=== PATIENT | female | born 1995 | race Caucasian/White ===

== ENCOUNTER 2017-04-10 03:01 | Inpatient (IN) | payer OTHER ==
[~2017-04-10] VITALS: Ht 165.1 cm; Wt 71.5 kg
[~2017-04-10 03:01] MED LIST: CITA10TA4 PO; EPP3/2 IM; PRAZ1CAP10 PO; QUET1TAB37 PO
[2017-04-10 03:06] VITALS: O2SAT 99
--- NOTE | 2017-04-10 03:36 | EMERGENCY ROOM VISIT NOTE ---
History Report prepared by Tahir: Elena Bishop Under the Supervision of: Dr. Marta Mcghee M.D. First contact with patient: 03:22 Chief Complaint: MENTAL HEALTH EVALUATION Stated Complaint: need psych handley stay- schizophrenia History of Present Illness The patient is a 22 year old female who presents to the Emergency Room with complaints of a mental health evaluation. The patient states that she has schizophrenia and that she has been off of her medications for two weeks. The patient reports that her medication makes her tired so she stopped taking them so she could stay up later to do school work. She reports that she took an extra pill that she had 3 days ago. She reports that she has also been hallucinating clowns recently. The patient denies substance abuse and suicidal thoughts. Source of History: patient Onset: today Position: other (global) Quality: other (mental health evaluation ) Timing: constant Note: additional symptom: hallucinations denies: suicidal thoughts Review of Systems See HPI for pertinent positives & negatives. A total of 10 systems reviewed and were otherwise negative. Past Medical & Surgical Medical Problems: (1) Depression (2) Schizophrenia Social History Problems: (1) Sexually active Family History Patient reports no known family medical history. Social History Smoking Status: Never Smoker Drug Use: none Marital Status: single Housing Status: lives with roommate Occupation Status: [employer] student Current/Historical Medications Scheduled Citalopram Hydrobromide (Citalopram Hydrobromide), 10 MG PO QAM Quetiapine Fumarate (Seroquel Xr), 300 MG PO HS Scheduled PRN Epinephrine (Epipen), 0.3 MG IM UD PRN for ALLERGIC REACTION Lorazepam (Ativan), 0.5 MG PO Q6H PRN for Anxiety Quetiapine Fumarate (Seroquel), 25 MG PO BID PRN for stress Allergies Coded Allergies: Shellfish (Verified Allergy, Severe, flushed and sob, 04/10/17) HAS USED EPIPEN WITH REACTION Risperidone (Verified Allergy, Mild, Drops BP, 04/10/17) Physical Exam Vital Signs Date Time Temp Pulse Resp B/P (MAP) Pulse Ox O2 Delivery O2 Flow Rate FiO2 04/10/17 03:06 36.4 86 20 119/85 99 Room Air Physical Exam Vital signs reviewed. General: Well-appearing female, in no significant distress. HEENT: No scleral icterus, PERRLA, neck supple. Atraumatic. Cardiovascular: Regular rate and rhythm, no extra sounds. Pulmonary: Clear to auscultation bilaterally, normal work of breathing. Abdomen: Soft, nontender, nondistended, positive bowel sounds. Musculoskeletal: Atraumatic, no peripheral edema. Neurologic: Patient awake alert and oriented x 3, full strength in all 4 extremities. Cranial nerves 2 through 12 grossly intact. Skin: Warm, dry, no rash Psych: Negative suicidal, negative homicidal. Medical Decision & Procedures Laboratory Results 04/10/17 03:28 Red Blood Count 4.77, Mean Corpuscular Volume 86.2, Mean Corpuscular Hemoglobin 28.9, Mean Corpuscular Hemoglobin Concent 33.6, Mean Platelet Volume 9.0, Neutrophils (%) (Auto) 50.5, Lymphocytes (%) (Auto) 37.3, Monocytes (%) (Auto) 10.1, Eosinophils (%) (Auto) 1.9, Basophils (%) (Auto) 0.1, Neutrophils # (Auto ) 3.45, Lymphocytes # (Auto) 2.55, Monocytes # (Auto) 0.69, Eosinophils # (Auto ) 0.13, Basophils # (Auto) 0.01 04/10/17 03:28 Test 04/10/17 03:28 04/10/17 04:15 04/10/17 04:31 White Blood Count 6.84 K/uL (4.8-10.8) Red Blood Count 4.77 M/uL (4.2-5.4) Hemoglobin 13.8 g/dL (12.0-16.0) Hematocrit 41.1 % (37-47) Mean Corpuscular Volume 86.2 fL (80-100) Mean Corpuscular Hemoglobin 28.9 pg (25-34) Mean Corpuscular Hemoglobin Concent 33.6 g/dl (32-36) Platelet Count 248 K/uL (130-400) Mean Platelet Volume 9.0 fL (7.4-10.4) Neutrophils (%) (Auto) 50.5 % Lymphocytes (%) (Auto) 37.3 % Monocytes (%) (Auto) 10.1 % Eosinophils (%) (Auto) 1.9 % Basophils (%) (Auto) 0.1 % Neutrophils # (Auto) 3.45 K/uL (1.4-6.5) Lymphocytes # (Auto) 2.55 K/uL (1.2-3.4) Monocytes # (Auto) 0.69 K/uL (0.11-0.59) Eosinophils # (Auto) 0.13 K/uL (0-0.5) Basophils # (Auto) 0.01 K/uL (0-0.2) RDW Standard Deviation 39.7 fL (36.4-46.3) RDW Coefficient of Variation 12.6 % (11.5-14.5) Immature Granulocyte % (Auto) 0.1 % Immature Granulocyte # (Auto) 0.01 K/uL (0.00-0.02) Anion Gap 8.0 mmol/L (3-11) Est Creatinine Clear Calc Drug Dose 104.6 ml/min Estimated GFR () 115.2 Estimated GFR (Non- 99.4 BUN/Creatinine Ratio 6.3 (10-20) Calcium Level 8.7 mg/dl (8.5-10.1) Total Bilirubin 0.4 mg/dl (0.2-1) Direct Bilirubin < 0.1 mg/dl (0-0.2) Aspartate Amino Transf (AST/SGOT) 12 U/L (15-37) Alanine Aminotransferase (ALT/SGPT) 18 U/L (12-78) Alkaline Phosphatase 83 U/L (45-117) Total Protein 7.3 gm/dl (6.4-8.2) Albumin 3.9 gm/dl (3.4-5.0) Thyroid Stimulating Hormone (TSH) 1.850 uIu/ml (0.300-4.500) Salicylates Level < 1.7 mg/dl (2.8-20) Acetaminophen Level < 2 ug/ml (10-30) Ethyl Alcohol mg/dL < 3.0 mg/dl (0-3) Urine Color DK YELLOW Urine Appearance CLEAR (CLEAR) Urine pH 5.0 (4.5-7.5) Urine Specific [place] 1.022 (1.000-1.030) Urine Protein NEG (NEG) Urine Glucose (UA) NEG (NEG) Urine Ketones TRACE (NEG) Urine Occult Blood NEG (NEG) Urine Nitrite NEG (NEG) Urine Bilirubin NEG (NEG) Urine Urobilinogen NEG (NEG) Urine Leukocyte Esterase MODERATE (NEG) Urine WBC (Auto) >30 /hpf (0-5) Urine RBC (Auto) 0-4 /hpf (0-4) Urine Hyaline Casts (Auto) 1-5 /lpf (0-5) Urine Epithelial Cells (Auto) >30 /lpf (0-5) Urine Bacteria (Auto) 1+ (NEG) Urine Opiates Screen NEG (NEG) Urine Methadone, Qualitative NEG (NEG) Urine Barbiturates NEG (NEG) Urine Phencyclidine (PCP) Level NEG (NEG) Ur Amphetamine/Methamphetamine NEG (NEG) MDMA (Ecstasy) Screen NEG (NEG) Urine Benzodiazepines Screen NEG (NEG) Urine Cocaine Metabolite NEG (NEG) Urine Marijuana (THC) NEG (NEG) Urine Test NEG (NEG) Laboratory results per my review. ED Course 0329: Past medical records reviewed. The patient was evaluated in room A7. A complete history and physical examination was performed. 0600: Upon reevaluation, the patient is resting comfortably. She verbalized agreement of the treatment plan. I spoke with Adrian Kruger. The patient will be evaluated for further management and care. Medical Decision Differential diagnosis: Etiologies such as mood disorder, infection, hypoglycemia, electrolyte abnormalities, cardiac sources, intracerebral event, toxicologic, neurologic, as well as others were entertained. This patient was evaluated and appeared to be in no significant distress. Patient was medically cleared and evaluated by David Ely. She was accepted for inpatient management. Patient is aware of the plan and agrees. Medication Reconcilliation Current Medication List: was personally reviewed by me Blood Pressure Screening Patient's blood pressure: Normal blood pressure Consults Time Called: 0530 Consulting Physician: Adrian Kruger Returned Call: 0600 I reviewed the patient's case with Adrian Kruger. The patient will be evaluated for further management. Impression Primary Impression: Schizophrenia Scribe Attestation The scribe's documentation has been prepared under my direction and personally reviewed by me in its entirety. I confirm that the note above accurately reflects all work, treatment, procedures, and medical decision making performed by me. Departure Information Dispostion Being Evaluated By Hospitalist [facility] (PCP) Patient Instructions My [facility]
[2017-04-10 03:37] LABS: BASO % 0.1 %; BASO ABS # 0.01 K/uL (0-0.2); COMPLETE YES; EOS % 1.9 %; HEMATOCRIT 41.1 % (37-47); IG% 0.1 %; LYMPH % 37.3 %; LYMPH ABS # 2.55 K/uL (1.2-3.4); MEAN CELL VOLUME 86.2 fL (80-100); MEAN CORPUSCULAR HEMOGLOBIN 28.9 pg (25-34); MEAN CORPUSCULAR HGB CONC 33.6 g/dl (32-36); MONO % 10.1 %; NEUT % 50.5 %; PLATELET COUNT 248 K/uL (130-400); RED BLOOD COUNT 4.77 M/uL (4.2-5.4); WHITE BLOOD COUNT 6.84 K/uL (4.8-10.8)
[2017-04-10 03:55] LABS: ALT/SGPT 18 U/L (12-78); AST/SGOT 12 U/L (15-37); BLOOD UREA NITROGEN 5 mg/dl (7-18); BUN/CREATININE RATIO 6.3 (10-20); CALCIUM 8.7 mg/dl (8.5-10.1); CARBON DIOXIDE 27 mmol/L (21-32); CHLORIDE 105 mmol/L (98-107); CREATININE 0.83 mg/dl (0.60-1.20); GLUCOSE 122 mg/dl (70-99); POTASSIUM 3.7 mmol/L (3.5-5.1); SODIUM 140 mmol/L (136-145)
[2017-04-10] MEDS ORDERED: QUET1TAB30 PO (04:05)
[2017-04-10] MEDS ORDERED: QUET300T2 PO (04:05)
[2017-04-10 04:06] LABS: ALKALINE PHOSPHATASE 83 U/L (45-117)
[2017-04-10] MEDS ORDERED: LORA-741 PO (04:06)
[2017-04-10 04:10] LABS: ACETAMINOPHEN < 2 ug/ml (10-30)
[2017-04-10 04:32] LABS: URINE APPEARANCE CLEAR (CLEAR); URINE BILIRUBIN NEG (NEG); URINE COLOR DK YELLOW; URINE EPITHELIAL CELL AUTO >30 /lpf (0-5); URINE NITRITE NEG (NEG); URINE SPECIFIC GRAVITY 1.022 (1.000-1.030); UROBILINOGEN NEG (NEG); ZZUR CULT IF INDIC CLEAN CATCH YES
[2017-04-10 04:34] LABS: MANUAL MICROSCOPIC REQUIRED? NO; REVIEW REQ? NO
[2017-04-10 04:53] LABS: BENZODIAZEPINE, URINE NEG (NEG); COCAINE,URINE NEG (NEG); PHENCYCLIDINE, URINE NEG (NEG)
[2017-04-10] MEDS ORDERED: NURSING VERBAL MED ORDER ONE (06:30)
[2017-04-10] MEDS ORDERED: ACETAMINOPHEN 325 MG TAB PO PRN (07:45)
[2017-04-10] MEDS ORDERED: hydrOXYzine HCL 25 MG TAB PO PRN ×2 (07:45)
[2017-04-10] MEDS ORDERED: SODIUM CHLORIDE 0.65% NA SOLN 45 ML (OCEAN) PRN (07:45)
[2017-04-10] MEDS ORDERED: ALUMINUM/MAGNESIUM SUSP 30 ML UDC PO PRN (07:45)
[2017-04-10] MEDS ORDERED: MAGNESIUM HYDROXIDE SUSP 30 ML UDC PO PRN (07:45)
[2017-04-10] MEDS ORDERED: BISMUTH SUBSALICYLATE PER ML OMNICELL CHARGE PO PRN (07:45)
[2017-04-10 07:48] VITALS: BP 108/69; PULSE 87; TEMP 36.9; Ht 165.1 cm; Wt 71.5 kg
[2017-04-10] MEDS ORDERED: LORAZEPAM 0.5 MG TAB PO PRN ×2 (08:00→11:15)
[2017-04-10] MEDS: CITALOPRAM 20 MG TAB PO SCH (09:01)
[2017-04-10] MEDS ORDERED: CITALOPRAM 20 MG TAB PO ONE (11:08)
[2017-04-10] MEDS ORDERED: EPINEPHRINE ADULT AUTO-INJECT 0.3 MG SYR IM PRN (11:15)
[2017-04-10] MEDS ORDERED: QUETIAPINE FUMARATE 25 MG TAB PO PRN (11:15)
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
[2017-04-10] MEDS: QUETIAPINE FUMARATE PO SCH ×2 (21:34)
[2017-04-10] MEDS ORDERED: QUETIAPINE FUMARATE 300 MG TABCR PO SCH (22:00)
[2017-04-11 07:01] VITALS: BP_SYST 106; BP_SYST 118; BP_DIAS 68; PULSE 65; PULSE 99; TEMP 36.4
[2017-04-11] MEDS ORDERED: CITALOPRAM 20 MG TAB PO SCH (09:00)
[2017-04-11 09:23] LABS: CHOLESTEROL/HDL RATIO 3.9
[2017-04-11] MEDS: CITALOPRAM 20 MG TAB PO SCH (10:17)
--- NOTE | 2017-04-11 12:04 | Psychiatric Progress Notes ---
Progress Note Date of Service Apr 11, 2017. Interval History Gracie Patton is a 22-year-old female who currently lives in [place] with 3 roommates, has a history of schizophrenia, and presented to the emergency room with worsening hallucinations in the context of going off her medications 2 weeks ago due to sedation that interfered with studying. She was admitted voluntarily. Chief Complaint "I'm just tired. ". Subjective Patient was seen & assessed interval progress reviewed with Treatment Team. The patient slept most of yesterday and is still in bed at noon. She awakens to verbal, and says that she feels tired, having just restarted her meds. She reports that her mood is "good" as is her thinking. She denies aud/vis hallucinations, delusions or paranoia. She did not get up for breakfast today, but did eat 2 meals yesterday. She denies any physical complaints or side effects to meds other than sedation. Review of Systems Constitutional: + fatigue ENT: No hearing loss, No unusual epistaxis, No nasal symptoms, No sore throat, No tinnitus, No dental problems, No trouble swallowing, No problem reported Respiratory: No cough, No sputum, No wheezing, No shortness of breath, No dyspnea on exertion, No dyspnea at rest, No hemoptysis, No problem reported Cardiovascular: No chest pain, No orthopnea, No PND, No edema, No claudication , No palpitations, No problem reported Abdomen: No pain, No nausea, No vomiting, No diarrhea, No constipation, No GI bleeding, No problem reported Musculoskeletal: No joint pain, No muscle pain, No swelling, No calf pain, No problem reported Neurologic: No memory loss, No paralysis, No weakness, No numbness/tingling, No vertigo, No balance problems, No problem reported Psychiatric: No depression symptoms, No anhedonism, No anxiety, No insomnia, No substance abuse, No problem reported Integumentary: No rash, No itch, No new/changing skin lesions, No color change , No bleeding, No problem reported Sleep Information Total Hours of Sleep: 6.50 Meal Information Percent of Breakfast Consumed: 100 Percent of Dinner Consumed: 95 Mental Status Exam During interview pt is: cooperative Appearance: appropriately dressed, disheveled, appeared stated age Eye contact is: poor (tired with eyes closed) Motor behavior is: no abnormal motor movements Speech: normal in rate, rhythm & volume Affect: euthymic Mood is: other ("good") Thought process: goal directed, linear, logical, clear, coherent Thought content: reality based without delusions Suicidal thought are: denied Homicidal thoughts are: denied Hallucinations: denies auditory, denies visual Cognition: memory grossly intact, attention grossly intact, language grossly intact Intelligence estimated to be: consistent with level of education Insight: fair Judgement: fair Impression Has slept for most of the last 24 hrs. Encouraged to challenge herself to get out of bed to prevent insomnia tonight. Will continue current meds Plan (1) Schizophrenia 04/10 -Resume home doses of quetiapine XR 300mg qhs and quetiapine 25mg bid prn. -Pt states she has not had fasting labs, Check FLP and glucose tomorrow AM for monitoring on an atypical. -Get records from Dr. White and confirm doses of medications. Coordinate care , -Offer family meeting, which she is declining. -Encourage attendance and participation in groups and therapy. 04/11 - Continue current meds - Encourage good sleep/wake cycles (2) Depression Resume home dose of citalopram. (3) Anxiety disorder Resume home dose of citalopram, lorazepam prn, and quetiapine prn. (4) Sexually active Sexually active and not on contraception. Using condoms and "pull out method." Encouraged to follow up with OB at [facility] as she is exploring IUDs, and to use barrier protection in the meantime. Discharge / Aftercare Planning Psychiatrist: Name: Dr White Date of Appointment: Apr 19, 2017 Time of Appointment: 4:30pm Therapist: Name: none Core Setter: Name: none Visit Code E&M Code: 62969 Inventory Assets Strengths: intelligence, well educated about diagnosis, committed to treatment, good rapport with psychiatrist Risk Factors Assessment : Yes /single/: Yes Higher / Fall in social status: No Health problems: No Mental Health Diagnoses: Yes Substance use disorders: No Previous attempt: Yes Previous psychiatric stay: Yes Hopelessness: No Smoker: No Protective Factors Assessment : No Responsible for young children: No Employed: Yes Stable relationships: Yes Supportive family: No Good rapport with provider: Yes Data Vital Signs Last 24 Hrs: Date Time Temp Pulse Resp B/P (MAP) Pulse Ox O2 Delivery O2 Flow Rate FiO2 04/11/17 07:01 36.4 65 16 106/68 99 118/68 Meds Administered Last 24 Hrs: Meds Administered (Past 24Hrs) Medications (Trade) Dose Ordered Sig/Prashanth Route Start Time Stop Time Status Last Admin Dose Admin Citalopram Hydrobromide (celeXA TAB) 10 mg QAM PO 04/10/17 09:00 05/10/17 08:59 04/11/17 10:17 10 MG Quetiapine Fumarate (seroQUEL XR TAB) 300 mg HS PO 04/10/17 22:00 05/10/17 21:59 04/10/17 21:34 300 MG Lab Results Last 24 Hrs: Last 24 Hours Test 04/11/17 08:08 Fasting Glucose 78 mg/dl Triglycerides Level 135 mg/dl Cholesterol Level 177 mg/dl HDL Cholesterol 45 mg/dl LDL Cholesterol, Calculated 105 mg/dl VLDL Cholesterol, Calculated 27 mg/dl Cholesterol/HDL Ratio 3.9
[2017-04-11] MEDS: QUETIAPINE FUMARATE PO SCH ×2 (21:21)
[2017-04-12 07:02] VITALS: BP_SYST 100; BP_SYST 98; BP_DIAS 66; PULSE 66; PULSE 89; TEMP 36.3
[2017-04-12] MEDS: CITALOPRAM 20 MG TAB PO SCH (09:14)
--- NOTE | 2017-04-12 11:34 | Psychiatric Progress Notes ---
Progress Note Date of Service Apr 12, 2017. Interval History Gracie Patton is a 22-year-old female who currently lives in [place] with 3 roommates, has a history of schizophrenia, and presented to the emergency room with worsening hallucinations in the context of going off her medications 2 weeks ago due to sedation that interfered with studying. She was admitted voluntarily. Chief Complaint "I'm tired from starting back on my meds. ". Subjective Patient was seen & assessed interval progress reviewed with Treatment Team. The patient is again in bed when approached for the interview. She says that getting back on her meds is making her tired. Staff report that she was in bed most of the day yesterday, but was able to get up and attend groups last evening. Today she repeats what she said yesterday, that her mood is good, she denies aud/vis hallucinations or paranoia, and never had any SI/HI. She believes that she just came here to get her meds restarted and will likely be ready to go by tomorrow. Review of Systems Constitutional: + fatigue ENT: No hearing loss, No unusual epistaxis, No nasal symptoms, No sore throat, No tinnitus, No dental problems, No trouble swallowing, No problem reported Respiratory: No cough, No sputum, No wheezing, No shortness of breath, No dyspnea on exertion, No dyspnea at rest, No hemoptysis, No problem reported Cardiovascular: No chest pain, No orthopnea, No PND, No edema, No claudication , No palpitations, No problem reported Abdomen: No pain, No nausea, No vomiting, No diarrhea, No constipation, No GI bleeding, No problem reported Musculoskeletal: No joint pain, No muscle pain, No swelling, No calf pain, No problem reported Neurologic: No memory loss, No paralysis, No weakness, No numbness/tingling, No vertigo, No balance problems, No problem reported Psychiatric: No depression symptoms, No anhedonism, No anxiety, No insomnia, No substance abuse, No problem reported Integumentary: No rash, No itch, No new/changing skin lesions, No color change , No bleeding, No problem reported Sleep Information Total Hours of Sleep: 7.75 Meal Information Percent of Breakfast Consumed: 100 Percent of Lunch Consumed: 100 Percent of Dinner Consumed: 75 Mental Status Exam During interview pt is: cooperative Appearance: appropriately dressed, disheveled, appeared stated age Eye contact is: poor (tired with eyes closed) Motor behavior is: no abnormal motor movements Speech: normal in rate, rhythm & volume Affect: euthymic Mood is: other ("good") Thought process: goal directed, linear, logical, clear, coherent Thought content: reality based without delusions Suicidal thought are: denied Homicidal thoughts are: denied Hallucinations: denies auditory, denies visual Cognition: memory grossly intact, attention grossly intact, language grossly intact Intelligence estimated to be: consistent with level of education Insight: fair Judgement: fair Impression Is again too sedated to get up for groups. Will move Seroquel XR to 1999. She is denying being symptomatic in any way and will be able to discharge tomorrow Plan (1) Schizophrenia 04/10 -Resume home doses of quetiapine XR 300mg qhs and quetiapine 25mg bid prn. -Pt states she has not had fasting labs, Check FLP and glucose tomorrow AM for monitoring on an atypical. -Get records from Dr. White and confirm doses of medications. Coordinate care , -Offer family meeting, which she is declining. -Encourage attendance and participation in groups and therapy. 04/11 - Continue current meds - Encourage good sleep/wake cycles 04/12 - Move Seroquel XR to 1999 (2) Depression Resume home dose of citalopram. (3) Anxiety disorder Resume home dose of citalopram, lorazepam prn, and quetiapine prn. (4) Sexually active Sexually active and not on contraception. Using condoms and "pull out method." Encouraged to follow up with OB at [facility] as she is exploring IUDs, and to use barrier protection in the meantime. Discharge / Aftercare Planning Psychiatrist: Name: Dr White Date of Appointment: Apr 19, 2017 Time of Appointment: 4:30pm Therapist: Name: none Quotation Clerk: Name: none Visit Code E&M Code: 74935 Inventory Assets Strengths: intelligence, well educated about diagnosis, committed to treatment, good rapport with psychiatrist Risk Factors Assessment : Yes /single/: Yes Higher / Fall in social status: No Health problems: No Mental Health Diagnoses: Yes Substance use disorders: No Previous attempt: Yes Previous psychiatric stay: Yes Hopelessness: No Smoker: No Protective Factors Assessment : No Responsible for young children: No Employed: Yes Stable relationships: Yes Supportive family: No Good rapport with provider: Yes Data Vital Signs Last 24 Hrs: Date Time Temp Pulse Resp B/P (MAP) Pulse Ox O2 Delivery O2 Flow Rate FiO2 04/12/17 07:02 36.3 66 16 100/66 89 98/66 Meds Administered Last 24 Hrs: Meds Administered (Past 24Hrs) Medications (Trade) Dose Ordered Sig/Prashanth Route Start Time Stop Time Status Last Admin Dose Admin Quetiapine Fumarate (seroQUEL XR TAB) 300 mg HS PO 04/10/17 22:00 05/10/17 21:59 04/11/17 21:21 300 MG Lab Results Last 24 Hrs: 04/10/17 03:28 Red Blood Count 4.77, Mean Corpuscular Volume 86.2, Mean Corpuscular Hemoglobin 28.9, Mean Corpuscular Hemoglobin Concent 33.6, Mean Platelet Volume 9.0, Neutrophils (%) (Auto) 50.5, Lymphocytes (%) (Auto) 37.3, Monocytes (%) (Auto) 10.1, Eosinophils (%) (Auto) 1.9, Basophils (%) (Auto) 0.1, Neutrophils # (Auto ) 3.45, Lymphocytes # (Auto) 2.55, Monocytes # (Auto) 0.69, Eosinophils # (Auto ) 0.13, Basophils # (Auto) 0.01 04/10/17 03:28 Test 04/10/17 03:28 04/10/17 04:15 04/10/17 04:31 04/11/17 08:08 White Blood Count 6.84 K/uL (4.8-10.8) Red Blood Count 4.77 M/uL (4.2-5.4) Hemoglobin 13.8 g/dL (12.0-16.0) Hematocrit 41.1 % (37-47) Mean Corpuscular Volume 86.2 fL (80-100) Mean Corpuscular Hemoglobin 28.9 pg (25-34) Mean Corpuscular Hemoglobin Concent 33.6 g/dl (32-36) Platelet Count 248 K/uL (130-400) Mean Platelet Volume 9.0 fL (7.4-10.4) Neutrophils (%) (Auto) 50.5 % Lymphocytes (%) (Auto) 37.3 % Monocytes (%) (Auto) 10.1 % Eosinophils (%) (Auto) 1.9 % Basophils (%) (Auto) 0.1 % Neutrophils # (Auto) 3.45 K/uL (1.4-6.5) Lymphocytes # (Auto) 2.55 K/uL (1.2-3.4) Monocytes # (Auto) 0.69 K/uL (0.11-0.59) Eosinophils # (Auto) 0.13 K/uL (0-0.5) Basophils # (Auto) 0.01 K/uL (0-0.2) RDW Standard Deviation 39.7 fL (36.4-46.3) RDW Coefficient of Variation 12.6 % (11.5-14.5) Immature Granulocyte % (Auto) 0.1 % Immature Granulocyte # (Auto) 0.01 K/uL (0.00-0.02) Anion Gap 8.0 mmol/L (3-11) Est Creatinine Clear Calc Drug Dose 104.6 ml/min Estimated GFR () 115.2 Estimated GFR (Non- 99.4 BUN/Creatinine Ratio 6.3 (10-20) Calcium Level 8.7 mg/dl (8.5-10.1) Total Bilirubin 0.4 mg/dl (0.2-1) Direct Bilirubin < 0.1 mg/dl (0-0.2) Aspartate Amino Transf (AST/SGOT) 12 U/L (15-37) Alanine Aminotransferase (ALT/SGPT) 18 U/L (12-78) Alkaline Phosphatase 83 U/L (45-117) Total Protein 7.3 gm/dl (6.4-8.2) Albumin 3.9 gm/dl (3.4-5.0) Thyroid Stimulating Hormone (TSH) 1.850 uIu/ml (0.300-4.500) Salicylates Level < 1.7 mg/dl (2.8-20) Acetaminophen Level < 2 ug/ml (10-30) Ethyl Alcohol mg/dL < 3.0 mg/dl (0-3) Urine Color DK YELLOW Urine Appearance CLEAR (CLEAR) Urine pH 5.0 (4.5-7.5) Urine Specific [place] 1.022 (1.000-1.030) Urine Protein NEG (NEG) Urine Glucose (UA) NEG (NEG) Urine Ketones TRACE (NEG) Urine Occult Blood NEG (NEG) Urine Nitrite NEG (NEG) Urine Bilirubin NEG (NEG) Urine Urobilinogen NEG (NEG) Urine Leukocyte Esterase MODERATE (NEG) Urine WBC (Auto) >30 /hpf (0-5) Urine RBC (Auto) 0-4 /hpf (0-4) Urine Hyaline Casts (Auto) 1-5 /lpf (0-5) Urine Epithelial Cells (Auto) >30 /lpf (0-5) Urine Bacteria (Auto) 1+ (NEG) Urine Opiates Screen NEG (NEG) Urine Methadone, Qualitative NEG (NEG) Urine Barbiturates NEG (NEG) Urine Phencyclidine (PCP) Level NEG (NEG) Ur Amphetamine/Methamphetamine NEG (NEG) MDMA (Ecstasy) Screen NEG (NEG) Urine Benzodiazepines Screen NEG (NEG) Urine Cocaine Metabolite NEG (NEG) Urine Marijuana (THC) NEG (NEG) Urine Test NEG (NEG) Fasting Glucose 78 mg/dl (70-99) Triglycerides Level 135 mg/dl (0-150) Cholesterol Level 177 mg/dl (0-200) HDL Cholesterol 45 mg/dl LDL Cholesterol, Calculated 105 mg/dl VLDL Cholesterol, Calculated 27 mg/dl Cholesterol/HDL Ratio 3.9 Date/Time Source Procedure Growth Status 04/10/17 04:15 Urine , Clean Catch Urine Culture - Final THREE TYPES OF ORGANSIMS PRESENT, ALL... Complete
[2017-04-12] MEDS ORDERED: QUETIAPINE FUMARATE 200 MG TABCR PO SCH (20:00)
[2017-04-12] MEDS ORDERED: QUETIAPINE FUMARATE 300 MG TABCR PO SCH (20:00)
[2017-04-12] MEDS ORDERED: QUETIAPINE FUMARATE 50 MG TABCR PO SCH (20:00)
[2017-04-13 06:43] VITALS: BP_SYST 101; BP_SYST 99; BP_DIAS 64; BP_DIAS 68; PULSE 72; PULSE 97; TEMP 36.4
[2017-04-13] MEDS: CITALOPRAM 20 MG TAB PO SCH (09:30)
[2017-04-13] MEDS ORDERED: CITA10TA4 PO (09:43)
[2017-04-13] MEDS ORDERED: QUET300T2 PO (09:43)
--- NOTE | 2017-04-13 09:49 | Discharge Instructions ---
Discharge Information Report Includes Report will include the: Discharge Instructions & Summary Admission Admission Date / Time: Apr 10, 2017 at 06:20 Reason for Admission: Schizophrenic With Psychosis Discharge Discharge Diagnosis / Problem: Schizophrenia Condition at Discharge: Good Discharge Goals Goal(s): Decrease discomfort, Improve disease control, Prevent Disease Progression Activity Recommendations Activity Limitations: resume your previous activity . Instructions / Follow-Up Instructions / Follow-Up . SPECIAL CARE INSTRUCTIONS: 1. Follow through with your scheduled aftercare appointments. If unable to keep an appointment, please call to reschedule. 2. Take your medication only as prescribed. Medication should not be changed or stopped without the approval of your doctor. In the event of worsening symptoms or concerns about side effects, contact your doctor immediately. 3. Utilize new healthy coping skills, anger management skills, and stress management skills learned during your hospitalization. Journal feelings and process them with a support person. Identify stressors or situations that may result in relapse, deterioration or inappropriate behaviors and develop a plan to deal with those issues. 4. If your coping skills are ineffective and you are in crisis, contact your outpatient providers for direction. If unable to reach your providers, please call the CAN HELP LINE AT or go to the closest Emergency Room. 5. Avoid alcohol and un-prescribed drugs. 6. You have been provided with the Mental Health Advance Directives Pamphlet for your review. AFTERCARE APPOINTMENTS: * Please call your insurance company prior to your scheduled appointment to confirm your aftercare providers are covered. Take your insurance information to your appointments. . Discharge / Aftercare Planning Psychiatrist: Name: Dr White Date of Appointment: Apr 19, 2017 Time of Appointment: 4:30pm Therapist: Name Of Therapist: none Machine Packer: Name: none . Follow-Up Care Plan for Follow-Up Care: She will see her regular psychiatrist next week Current Hospital Diet Patient's current hospital diet: Regular Diet Discharge Diet Recommended Diet: Regular Diet Procedures Procedures Performed: No Pending Studies Pending Studies at Discharge: No Medical Emergencies . Who to Call and When: Medical Emergencies: For questions or emergencies related to your hospital stay, please contact the Inpatient Behavioral Health Unit at [phone]. A deli bakery clerk is on-call 05/02 for the Behavioral Health Unit for emergencies At any time you feel your situation is an emergency, you may also call 911 immediately. . Non-Emergent Contact Non-Emergency issues call your: Psychiatrist Advance Directives Existing Advance Directive: No Do You Have an Existing Mental: No Existing Living Will: No Existing Power of Jukebox Operator: No Advance Directives Info Given: To Pt/S.O. Advance Directives Reason: Declines as Mental Health Visit. Discharge Summary Admission HPI Per the Admitting provider: Per records, the patient presented to the ER with a friend early this morning, requesting admission due to exacerbation of schizophrenia. Today she was seen with GUNNAR Sanchez, which she consented to. She states she went off her meds because "I was stupid," and her baseline hallucinations worsened, "so I needed a safe place to get back on my meds." She She reports chronic auditory, visual, and tactile hallucinations, with AVH of clowns and a little girl who is stabbing her, which were interfering with her ability to function. She has had a hallucination of a clown for many years, which has been exacerbated by being off her meds and release of a new It movie which has been widely advertised. 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 She says she was also in [place] working with the [employer], "and I had deadlines." She says she is "really responsible , I realize I can't stop taking my medication." She describes "a long mental health journey to find medications that work for her, says she likes her medications and says she "worked very hard to get a good treatment plan." She would like to resume her previous meds, citalopram 10mg, lorazepam 0.5mg prn, quetiapine 25mg bid prn, and quetiapine XR 300mg qhs. Reports decreased appetite but no weight change, restlessness, difficulty making decisions and focusing, irregular sleep schedule (but getting 9-12 hours a night), racing thoughts, and daily anxiety and stress due to above stressors. She has had panic attacks in the remote past, but currently well controlled. Denies current eating disorder, OCD, and manic symptoms. History of PTSD, still has some flashbacks and nightmares, but decreased and no longer requiring clonidine. Feels it has been helpful to talk to friends, therapist, and blog about her past experiences. Says she "is in a good place now." She denies SI and HI. She feels she "just needs to be here a couple days to get stable." She does not feel she needs therapy or a family meeting. Hospital Course (1) Schizophrenia 04/10 -Resume home doses of quetiapine XR 300mg qhs and quetiapine 25mg bid prn. -Pt states she has not had fasting labs, Check FLP and glucose tomorrow AM for monitoring on an atypical. -Get records from Dr. White and confirm doses of medications. Coordinate care , -Offer family meeting, which she is declining. -Encourage attendance and participation in groups and therapy. 04/11 - Continue current meds - Encourage good sleep/wake cycles 04/12 - Move Seroquel XR to 1999 (2) Depression Resume home dose of citalopram. (3) Anxiety disorder Resume home dose of citalopram, lorazepam prn, and quetiapine prn. (4) Sexually active Sexually active and not on contraception. Using condoms and "pull out method." Encouraged to follow up with OB at [facility] as she is exploring IUDs, and to use barrier protection in the meantime. Risk Factors Assessment : Yes /single/: Yes Higher / Fall in social status: No Health problems: No Mental Health Diagnoses: Yes Substance use disorders: No Previous attempt: Yes Previous psychiatric stay: Yes Hopelessness: No Smoker: No Protective Factors Assessment : No Responsible for young children: No Employed: Yes Stable relationships: Yes Supportive family: No Good rapport with provider: Yes Day of Discharge Assessment COURSE OF HOSPITALIZATION: The patient was admitted voluntarily and has been on our unit for 3 days. She had been off of her regular psychiatric medications for 3 weeks and had begun to see hallucinations of clowns and movie Eclipse. She came into the hospital and we titrated up her regular course of medications. She was significantly fatigued in the mornings, not feeling she can't get out of bed until afternoon. Dosing of her Seroquel XR was moved to about 8 PM which is when she takes it at home, with some improvement. She attended groups only in the evenings after she was able to wake up. She consistently denied any suicidal or homicidal ideation. She denied any auditory or visual hallucinations during her stay. She felt sure that when her medications were adjusted she would be able to leave and requested to leave today. She had told us that she was in school at [employer] however in attempting to submit to withdraw from school and her, it appears that she has not actually enrolled although she may be sitting in on some classes. She plans to return to her outpatient providers. She did not want to involve any of her family members while she was here and so no family meeting was held. DAY OF DISCHARGE ASSESSMENT: Today the patient is requesting discharge. She is worried that her pharmacy will not have the supply of Seroquel XR immediately and is requesting a 24-hour supply to go with her. She again today denies any suicidal or homicidal thinking. She denies auditory or visual hallucinations and denies any paranoia. She reports good mood. Gait and station are within normal limits. She denies side effects to medications or physical problems. Eye contact is good. Affect is restricted. Speech is of normal rate volume and tone. Thoughts are organized, goal directed, and without evidence of overt psychosis. Recent and remote memory are intact per conversation. Intelligence is estimated to be average. Insight and judgment are improved over admission. Laboratory Test 04/10/17 03:28 04/10/17 04:15 04/10/17 04:31 04/11/17 08:08 White Blood Count 6.84 Red Blood Count 4.77 Hemoglobin 13.8 Hematocrit 41.1 Mean Corpuscular Volume 86.2 Mean Corpuscular Hemoglobin 28.9 Mean Corpuscular Hemoglobin Concent 33.6 Platelet Count 248 Mean Platelet Volume 9.0 Neutrophils (%) (Auto) 50.5 Lymphocytes (%) (Auto) 37.3 Monocytes (%) (Auto) 10.1 Eosinophils (%) (Auto) 1.9 Basophils (%) (Auto) 0.1 Neutrophils # (Auto) 3.45 Lymphocytes # (Auto) 2.55 Monocytes # (Auto) 0.69 Eosinophils # (Auto) 0.13 Basophils # (Auto) 0.01 RDW Standard Deviation 39.7 RDW Coefficient of Variation 12.6 Immature Granulocyte % (Auto) 0.1 Immature Granulocyte # (Auto) 0.01 Sodium Level 140 Potassium Level 3.7 Chloride Level 105 Carbon Dioxide Level 27 Anion Gap 8.0 Blood Urea Nitrogen 5 Creatinine 0.83 Est Creatinine Clear Calc Drug Dose 104.6 Estimated GFR () 115.2 Estimated GFR (Non- 99.4 BUN/Creatinine Ratio 6.3 Random Glucose 122 Calcium Level 8.7 Total Bilirubin 0.4 Direct Bilirubin < 0.1 Aspartate Amino Transferase (AST) 12 Alanine Aminotransferase (ALT) 18 Alkaline Phosphatase 83 Total Protein 7.3 Albumin 3.9 Thyroid Stimulating Hormone (TSH) 1.850 Salicylates Level < 1.7 Acetaminophen Level < 2 Ethyl Alcohol mg/dL < 3.0 Urine Color DK YELLOW Urine Appearance CLEAR Urine pH 5.0 Urine Specific [place] 1.022 Urine Protein NEG Urine Glucose (UA) NEG Urine Ketones TRACE Urine Occult Blood NEG Urine Nitrite NEG Urine Bilirubin NEG Urine Urobilinogen NEG Urine Leukocyte Esterase MODERATE Urine WBC (Auto) >30 Urine RBC (Auto) 0-4 Urine Hyaline Casts (Auto) 1-5 Urine Epithelial Cells (Auto) >30 Urine Bacteria (Auto) 1+ Urine Synthetic Stimulants Pending Urine Opiates Screen NEG Urine Methadone, Qualitative NEG Urine Barbiturates NEG Urine Phencyclidine (PCP) Level NEG Ur Amphetamine/Methamphetamine NEG MDMA (Ecstasy) Screen NEG Urine Benzodiazepines Screen NEG Urine Cocaine Metabolite NEG Cannabinoids Comment Pending Urine Synthetic Cannabinoids Pending Ur Synthetic Cannabinoids Confirm Pending Urine Marijuana (THC) NEG Urine Test NEG Fasting Glucose 78 Triglycerides Level 135 Cholesterol Level 177 HDL Cholesterol 45 LDL Cholesterol, Calculated 105 VLDL Cholesterol, Calculated 27 Cholesterol/HDL Ratio 3.9 Total Time Total Time Spent (min): Greater than 30 minutes Total Time Included: examination of the patient, discharge planning, medication reconciliation, communication with other providers Tobacco Cessation at Discharge Smoking Status: Never Smoker FDA approved Prescription: non-smoker
[2017-04-13] MEDS ORDERED: QUETIAPINE FUMARATE 200 MG TABCR PO SCH (11:15)
[2017-04-13] MEDS ORDERED: QUETIAPINE FUMARATE 50 MG TABCR PO SCH (11:15)
[2017-04-13] MEDS ORDERED: CITALOPRAM 20 MG TAB PO SCH ×2 (11:15→22:00)
[2017-04-13] MEDS ORDERED: QUETIAPINE FUMARATE 300 MG TABCR PO SCH (22:00)
[2017-04-17 14:34] LABS: SYNTHETIC CANNABINOIDS QL URIN NEGATIVE (Negative)
== END 2017-04-13 11:16 | disposition home or self-care (01) | DRG 885 ==
LOC: C.EDB 03:03 → C.MHU 06:20
PROVIDERS: ADMIT Psychiatry & Neurology Child & Adolescent Psychiatry; ATTEND Psychiatry & Neurology Psychiatry
DX: F20.9 Schizophrenia, unspecified (principal); F32.9 Major depressive disorder, single episode, unspecified; F41.9 Anxiety disorder, unspecified

== ENCOUNTER 2017-07-27 13:52 | Emergency (ER) | payer OTHER ==
[~2017-07-27] VITALS: Ht 165.1 cm; Wt 78.0 kg
[~2017-07-27 13:52] MED LIST changes: -PRAZ1CAP10 PO; -QUET1TAB37 PO; +QUET300T2 PO
[2017-07-27 14:00] VITALS: TEMP 36.3; Ht 165.1 cm; Wt 78.0 kg
[2017-07-27] MEDS ORDERED: ONDANSETRON INJ 2 MG/ML 2 ML VIAL IV STA (14:30)
[2017-07-27] MEDS ORDERED: SODIUM CHLORIDE 0.9% 1000ML 1,000 ML IV STA (14:30)
[2017-07-27] MEDS ORDERED: OPTIRAY 320 IV PRN (14:45)
[2017-07-27 15:01] LABS: EOS % 0.7 %; EOS ABS # 0.07 K/uL (0-0.5); HEMOGLOBIN 13.5 g/dL (12.0-16.0); IG# 0.01 K/uL (0.00-0.02); LYMPH % 5.9 %; LYMPH ABS # 0.61 K/uL (1.2-3.4); MEAN CELL VOLUME 86.2 fL (80-100); MEAN CORPUSCULAR HEMOGLOBIN 29.1 pg (25-34); MEAN CORPUSCULAR HGB CONC 33.8 g/dl (32-36); MEAN PLATELET VOLUME 9.1 fL (7.4-10.4); MONO ABS # 0.62 K/uL (0.11-0.59); NEUT % 87.3 %; PLATELET COUNT 267 K/uL (130-400); RED CELL DISTRIBUTION WIDTH CV 13.5 % (11.5-14.5); RED CELL DISTRIBUTION WIDTH SD 42.7 fL (36.4-46.3); WHITE BLOOD COUNT 10.41 K/uL (4.8-10.8)
[2017-07-27 15:18] LABS: ALBUMIN 3.8 gm/dl (3.4-5.0); CALCIUM 8.4 mg/dl (8.5-10.1); CREATININE 0.76 mg/dl (0.60-1.20); POTASSIUM 3.6 mmol/L (3.5-5.1)
[2017-07-27 15:21] LABS: TOTAL PROTEIN 7.8 gm/dl (6.4-8.2)
[2017-07-27 15:49] LABS: INFLUENZA B ANTIGEN Neg for Influ B (NEG)
--- NOTE | 2017-07-27 16:02 | DIAGNOSTIC IMAGING REPORT ---
ABD/PELVIS IV CONTRAST ONLY CT DOSE: 452.96 mGy.cm HISTORY: Pain. Nausea. RLQ abd pain, vomiting TECHNIQUE: Multiaxial CT images of the abdomen and pelvis were performed following the use of intravenous contrast. A dose lowering technique was utilized adhering to the principles of ALARA. COMPARISON STUDY: None. FINDINGS: Lung bases are clear. Liver spleen and pancreas enhance uniformly. Kidneys negative for hydronephrosis. There are several mesenteric and right pericecal nodes. The appendix is identified and appears normal. There is no evidence for abscess collection or obstruction. There are several loops of fluid-filled small bowel in the right central pelvic and lower abdominal region. There is suggestion mild enteritis. No free fluid within the cul-de-sac. LAD is midline. The uterus is anteflexed. IMPRESSION: 1. Normal appendix. 2. Nonobstructive bowel pattern. 3. Findings consistent with mild mesenteric adenitis with superimposed mild enteritis The above report was generated using voice recognition software. It may contain grammatical, syntax or spelling errors. Electronically signed by: Rusty Silverman M.D. 07/27/2017 4:01 PM Dictated Date/Time: 07/27/2017 3:59 PM
[2017-07-27] MEDS ORDERED: ONDA4TAB10 SL (16:23)
--- NOTE | 2017-07-27 16:25 | EMERGENCY ROOM VISIT NOTE ---
History First contact with patient: 14:14 Chief Complaint: VOMITING Stated Complaint: THROWING UP,NO PD,ABD PAIN,SCHIZO-THREW UP MEDS Nursing Triage Summary: c/o body aches and fever since arriving back from [facility] History of Present Illness The patient is a 22 year old female who presents to the Emergency Room with complaints of abdominal pain and vomiting. The patient reports that she has had lower abdominal pain and vomiting for the past 2 days since returning from [facility]. She reports that she has had hot and cold flashes but has not taken her temperature. Patient does report she has not had a menstrual period in 6 months and has taken 2 tests which were both negative. The patient is very concerned because she has a history of schizophrenia and has been unable to keep her meds down. She reports she did not receive any vaccines prior to traveling to [facility]. She does report she has had some body aches. She rates her overall discomfort a 6/10. She denies a history of abdominal issues or abdominal surgery. She denies urinary symptoms, abnormal vaginal discharge, diarrhea or constipation. Review of Systems A complete 10 point review of systems was reviewed with the patient with pertinent positives and negatives as per history of present illness. All else were negative. Past Medical/Surgical History Medical Problems: (1) Depression (2) Schizophrenia Social History Problems: (1) Sexually active Family History Patient reports no known family medical history. Social History Smoking Status: Never Smoker Drug Use: none Marital Status: single Housing Status: lives with roommate Occupation Status: [employer] student Current/Historical Medications Scheduled Citalopram Hydrobromide (Citalopram Hydrobromide), 10 MG PO HS Ondasetron Odt (Zofran Odt), 4 MG SL Q6H Quetiapine Fumarate (Seroquel Xr), 300 MG PO HS Physical Exam Vital Signs Date Time Temp Pulse Resp B/P (MAP) Pulse Ox O2 Delivery O2 Flow Rate FiO2 07/27/17 16:35 108 16 96/57 99 07/27/17 14:50 117 17 111/80 99 Room Air 07/27/17 14:00 36.3 129 16 118/77 98 Physical Exam VITALS: Vitals are noted on the nurse's note and reviewed by myself. Vital signs stable. GENERAL: This is a 22-year-old female, in no acute distress, nondiaphoretic, well-developed well-nourished. HEENT: Normocephalic. PERRLA. EOMI. Nares patent. Mucous membranes moist. Neck is supple without nuchal rigidity. HEART: Regular rate and rhythm without murmurs gallops or rubs. LUNGS: Clear to auscultation bilaterally without wheezes, rales or rhonchi. ABDOMEN: Positive bowel sounds x 4. Soft, tenderness to palpation in the right lower quadrant. No guarding or rebound tenderness. NEURO: Patient was alert and oriented to person place and time. Medical Decision & Procedures ER Provider Diagnostic Interpretation: ABD/PELVIS IV CONTRAST ONLY FINDINGS: Lung bases are clear. Liver spleen and pancreas enhance uniformly. Kidneys negative for hydronephrosis. There are several mesenteric and right pericecal nodes. The appendix is identified and appears normal. There is no evidence for abscess collection or obstruction. There are several loops of fluid-filled small bowel in the right central pelvic and lower abdominal region. There is suggestion mild enteritis. No free fluid within the cul-de-sac. LAD is midline. The uterus is anteflexed. IMPRESSION: 1. Normal appendix. 2. Nonobstructive bowel pattern. 3. Findings consistent with mild mesenteric adenitis with superimposed mild enteritis Laboratory Results 07/27/17 14:35 Red Blood Count 4.64, Mean Corpuscular Volume 86.2, Mean Corpuscular Hemoglobin 29.1, Mean Corpuscular Hemoglobin Concent 33.8, Mean Platelet Volume 9.1, Neutrophils (%) (Auto) 87.3, Lymphocytes (%) (Auto) 5.9, Monocytes (%) (Auto) 6.0, Eosinophils (%) (Auto) 0.7, Basophils (%) (Auto) 0.0, Neutrophils # (Auto) 9.10, Lymphocytes # (Auto) 0.61, Monocytes # (Auto) 0.62, Eosinophils # (Auto) 0.07, Basophils # (Auto) 0.00 07/27/17 14:35 Test 07/27/17 14:35 07/27/17 14:40 07/27/17 15:45 White Blood Count 10.41 K/uL (4.8-10.8) Red Blood Count 4.64 M/uL (4.2-5.4) Hemoglobin 13.5 g/dL (12.0-16.0) Hematocrit 40.0 % (37-47) Mean Corpuscular Volume 86.2 fL (80-100) Mean Corpuscular Hemoglobin 29.1 pg (25-34) Mean Corpuscular Hemoglobin Concent 33.8 g/dl (32-36) Platelet Count 267 K/uL (130-400) Mean Platelet Volume 9.1 fL (7.4-10.4) Neutrophils (%) (Auto) 87.3 % Lymphocytes (%) (Auto) 5.9 % Monocytes (%) (Auto) 6.0 % Eosinophils (%) (Auto) 0.7 % Basophils (%) (Auto) 0.0 % Neutrophils # (Auto) 9.10 K/uL (1.4-6.5) Lymphocytes # (Auto) 0.61 K/uL (1.2-3.4) Monocytes # (Auto) 0.62 K/uL (0.11-0.59) Eosinophils # (Auto) 0.07 K/uL (0-0.5) Basophils # (Auto) 0.00 K/uL (0-0.2) RDW Standard Deviation 42.7 fL (36.4-46.3) RDW Coefficient of Variation 13.5 % (11.5-14.5) Immature Granulocyte % (Auto) 0.1 % Immature Granulocyte # (Auto) 0.01 K/uL (0.00-0.02) Anion Gap 4.0 mmol/L (3-11) Est Creatinine Clear Calc Drug Dose 118.9 ml/min Estimated GFR () 128.1 Estimated GFR (Non- 110.6 BUN/Creatinine Ratio 16.1 (10-20) Calcium Level 8.4 mg/dl (8.5-10.1) Total Bilirubin 0.5 mg/dl (0.2-1) Aspartate Amino Transf (AST/SGOT) 14 U/L (15-37) Alanine Aminotransferase (ALT/SGPT) 24 U/L (12-78) Alkaline Phosphatase 80 U/L (45-117) Total Protein 7.8 gm/dl (6.4-8.2) Albumin 3.8 gm/dl (3.4-5.0) Globulin 4.0 gm/dl (2.5-4.0) Albumin/Globulin Ratio 1.0 (0.9-2) Lipase 85 U/L (73-393) Influenza Type A Antigen Neg for Influ A (NEG) Influenza Type B Antigen Neg for Influ B (NEG) Urine Color YELLOW Urine Appearance CLEAR (CLEAR) Urine pH 7.0 (4.5-7.5) Urine Specific [place] 1.025 (1.000-1.030) Urine Protein NEG (NEG) Urine Glucose (UA) NEG (NEG) Urine Ketones TRACE (NEG) Urine Occult Blood NEG (NEG) Urine Nitrite NEG (NEG) Urine Bilirubin NEG (NEG) Urine Urobilinogen NEG (NEG) Urine Leukocyte Esterase SMALL (NEG) Urine WBC (Auto) 1-5 /hpf (0-5) Urine RBC (Auto) 0-4 /hpf (0-4) Urine Hyaline Casts (Auto) 0 /lpf (0-5) Urine Epithelial Cells (Auto) >30 /lpf (0-5) Urine Bacteria (Auto) NEG (NEG) Urine Test NEG (NEG) Medications Administered Medications (Trade) Dose Ordered Sig/Prashanth Route Start Time Stop Time Status Last Admin Dose Admin Sodium Chloride 1,000 ml @ 999 mls/hr Q1H1M STAT IV 07/27/17 14:30 07/27/17 15:30 DC 07/27/17 14:50 999 MLS/HR Ondansetron HCl (Zofran Inj) 4 mg NOW STAT IV 07/27/17 14:30 07/27/17 14:32 DC 07/27/17 14:50 4 MG ED Course The patient was evaluated as above. Labs were drawn and IV access was obtained. Patient was medicated with 1 L normal saline solution and [address] of the abdomen and pelvis was performed and read by radiology as above. Patient was reevaluated and was feeling much better. Findings were discussed with the patient. Discharge instructions were reviewed with the patient. The patient verbalized understanding of my assessment and treatment plan and was discharged home in good condition. Medical Decision Differential diagnosis includes appendicitis, gastritis, colitis, pelvic inflammatory disease, urinary tract infection, ovarian cyst, ovarian torsion, among others. The patient is a 22-year-old female who presents today complaining of abdominal pain and vomiting. Labs revealed no leukocytosis or concerning electrolyte abnormalities. Urinalysis was not suggestive of infection. Urine was negative. Influenza testing was negative. CT scan of the abdomen and pelvis was performed and showed findings consistent with mild mesenteric adenitis/enteritis. The patient was reassured and treatment plan was discussed. She will be given a prescription for Zofran and was encouraged to drink plenty of fluids. This is likely secondary to a viral illness. The patient was encouraged to follow-up with her primary care provider for a recheck and return here for any worsening symptoms or as needed. The patient's case was reviewed with Dr. Quevedo, ED attending physician, who agreed with my assessment and treatment plan. Based on the patient's presentation and work up, I feel the patient is stable for outpatient treatment. The patient was educated to return to the emergency department for any worsening of their current condition or new/concerning symptoms. She will follow up with her PCP. Medication Reconcilliation Current Medication List: was personally reviewed by me Blood Pressure Screening Patient's blood pressure: Normal blood pressure Impression Primary Impression: Mesenteric adenitis Departure Information Dispostion Home / Self-Care Condition GOOD Prescriptions Ondasetron Odt (ZOFRAN ODT) 4 Mg Tab 4 MG SL Q6H for Nausea, #15 TAB Prov: Nara Zuñiga ., VIKKI 07/27/17 Referrals No Doctor, Assigned (PCP) Patient Instructions My [facility] Additional Instructions You have been treated in the Emergency Department for your Abdominal Pain. Laboratory results and imaging studies have ruled out any emergent causes for your abdominal pain which would warrant admission or surgery. CT scan of your abdomen did show some swollen lymph nodes within your abdomen which usually represent a viral infection. You have been prescribed Zofran to be used for any nausea or vomiting. Take as prescribed. For pain control, you can use the following [id number] medicines (if >12 yo): - Regular strength (325mg/tab) Tylenol (acetaminophen) 2 tabs every 4-6 hours as needed. Do not exceed 12 tablets in a 24 hour period. Avoid taking more than 4 grams (4000 mg) of Tylenol per day. This includes any other sources of acetaminophen you may take on a regular basis. - Regular strength (200 mg/tab) Advil (ibuprofen) 1-2 tabs every 4-6 hours as needed. Do not exceed a dose of 3200 mg per day. Drink plenty of water and stay well hydrated. As with any trip to the Emergency Department, you should follow-up with your Primary Care Provider from today's visit. Return to the emergency department if your symptoms persist despite treatment plan outlined above or if the following symptoms occur: Worsening pain, uncontrolled vomiting, high fevers, dizziness/lightheadedness, or any other new/ concerning symptoms.
[2017-07-27 16:35] VITALS: BP 96/57; PULSE 108; O2SAT 99
== END 2017-07-27 16:37 | disposition home or self-care (01) ==
LOC: C.EDB 13:56
DX: I88.0 Nonspecific mesenteric lymphadenitis (principal); R11.10 Vomiting, unspecified; J32.9 Chronic sinusitis, unspecified; F20.9 Schizophrenia, unspecified; Z79.899 Other long term (current) drug therapy

== ENCOUNTER 2017-09-13 00:05 | Emergency (ER) | payer OTHER ==
[~2017-09-13] VITALS: Ht 165.1 cm; Wt 75.3 kg
[~2017-09-13 00:05] MED LIST changes: -EPP3/2 IM; +ONDA4TAB10 SL
[2017-09-13 00:07] VITALS: Ht 165.1 cm; Wt 75.3 kg
[2017-09-13 00:43] LABS: BASO % 0.1 %; BASO ABS # 0.01 K/uL (0-0.2); EOS % 3.5 %; EOS ABS # 0.24 K/uL (0-0.5); HEMATOCRIT 39.7 % (37-47); HEMOGLOBIN 13.9 g/dL (12.0-16.0); IG# 0.01 K/uL (0.00-0.02); LYMPH % 37.9 %; LYMPH ABS # 2.61 K/uL (1.2-3.4); MEAN CELL VOLUME 85.4 fL (80-100); MEAN CORPUSCULAR HEMOGLOBIN 29.9 pg (25-34); MEAN PLATELET VOLUME 8.8 fL (7.4-10.4); MONO % 11.8 %; MONO ABS # 0.81 K/uL (0.11-0.59); NEUT % 46.6 %; NEUT ABS # 3.21 K/uL (1.4-6.5); PLATELET COUNT 276 K/uL (130-400); RED CELL DISTRIBUTION WIDTH CV 12.7 % (11.5-14.5); RED CELL DISTRIBUTION WIDTH SD 39.3 fL (36.4-46.3); WHITE BLOOD COUNT 6.89 K/uL (4.8-10.8)
--- NOTE | 2017-09-13 00:59 | EMERGENCY ROOM VISIT NOTE ---
History Report prepared by Tahir: Terri Santos Under the Supervision of: Dr. Bull Miller M.D. First contact with patient: 00:15 Chief Complaint: MENTAL HEALTH EVALUATION Stated Complaint: SCHIZOPHRENIA-SUICIDAL -DEPRESSION History of Present Illness The patient is a 22 year old female who presents to the Emergency Room for a mental health evaluation for worsening suicidal ideation that began one week ago. The patient states that she has stopped taking her schizophrenia medicine, Seroquel, because she ran out one week, noting that they have not been working lately. She reports that she has been having increased visual and auditory hallucinations who have been telling her to kill herself, noting she does not have a plan. She states that she has been feeling depressed recently, but has not been hurting herself and notes that no one has been hurting her. The patient notes that she has had a suicide attempt in the past and does not feel safe at home. She denies vomiting, or any relationship or job related issues. Source of History: patient Onset: one week ago Position: other (mental) Quality: other (suicidal ideations) Timing: other (persistent) Associated Symptoms: No vomiting Note: Associated symptoms: suicidal ideations and auditory/visual hallucinations. Review of Systems See HPI for pertinent positives & negatives. A total of 10 systems reviewed and were otherwise negative. Past Medical & Surgical Medical Problems: (1) Depression (2) Schizophrenia Social History Problems: (1) Sexually active Family History Patient reports no known family medical history. Social History Smoking Status: Never Smoker Drug Use: none Marital Status: single Housing Status: lives with roommate Occupation Status: [employer] student Current/Historical Medications Scheduled Citalopram Hydrobromide (Citalopram Hydrobromide), 10 MG PO HS Quetiapine Fumarate (Seroquel Xr), 300 MG PO HS Allergies Coded Allergies: Shellfish (Verified Allergy, Severe, flushed and sob, 09/13/17) HAS USED EPIPEN WITH REACTION Risperidone (Verified Allergy, Mild, Drops BP, 09/13/17) Physical Exam Vital Signs Date Time Temp Pulse Resp B/P (MAP) Pulse Ox O2 Delivery O2 Flow Rate FiO2 09/13/17 03:37 36.7 76 20 120/81 97 Room Air 09/13/17 00:07 36.0 76 20 118/78 97 Room Air Physical Exam GENERAL: Patient is well appearing and in no acute distress. HEENT: No acute trauma, normocephalic atraumatic, mucous membranes moist, no nasal congestion, no scleral icterus. NECK: No stridor, no adenopathy, no meningismus, trachea is midline. LUNGS: No dyspnea. Clear to auscultation and equal bilaterally. No wheeze, no rhonchi. HEART: Regular rate and rhythm. No murmurs, rubs, gallops appreciated. ABDOMEN: Soft, nontender, bowel sounds positive, no masses appreciated, no peritonitis. BACK: No midline tenderness, no CVA tenderness EXTREMITIES: Normal motion all extremities, no cyanosis, no edema. NEUROLOGIC: Alert and oriented, no acute motor or sensory deficits, no focal weakness, cranial nerves grossly intact. SKIN: No rash, no jaundice, no diaphoresis. PSYCH: Admits to suicidal ideations and auditory and visual hallucinations. Medical Decision & Procedures Laboratory Results 09/13/17 00:30 Red Blood Count 4.65, Mean Corpuscular Volume 85.4, Mean Corpuscular Hemoglobin 29.9, Mean Corpuscular Hemoglobin Concent 35.0, Mean Platelet Volume 8.8, Neutrophils (%) (Auto) 46.6, Lymphocytes (%) (Auto) 37.9, Monocytes (%) (Auto) 11.8, Eosinophils (%) (Auto) 3.5, Basophils (%) (Auto) 0.1, Neutrophils # (Auto ) 3.21, Lymphocytes # (Auto) 2.61, Monocytes # (Auto) 0.81, Eosinophils # (Auto ) 0.24, Basophils # (Auto) 0.01 09/13/17 00:30 Test 09/13/17 00:30 09/13/17 01:10 White Blood Count 6.89 K/uL (4.8-10.8) Red Blood Count 4.65 M/uL (4.2-5.4) Hemoglobin 13.9 g/dL (12.0-16.0) Hematocrit 39.7 % (37-47) Mean Corpuscular Volume 85.4 fL (80-100) Mean Corpuscular Hemoglobin 29.9 pg (25-34) Mean Corpuscular Hemoglobin Concent 35.0 g/dl (32-36) Platelet Count 276 K/uL (130-400) Mean Platelet Volume 8.8 fL (7.4-10.4) Neutrophils (%) (Auto) 46.6 % Lymphocytes (%) (Auto) 37.9 % Monocytes (%) (Auto) 11.8 % Eosinophils (%) (Auto) 3.5 % Basophils (%) (Auto) 0.1 % Neutrophils # (Auto) 3.21 K/uL (1.4-6.5) Lymphocytes # (Auto) 2.61 K/uL (1.2-3.4) Monocytes # (Auto) 0.81 K/uL (0.11-0.59) Eosinophils # (Auto) 0.24 K/uL (0-0.5) Basophils # (Auto) 0.01 K/uL (0-0.2) RDW Standard Deviation 39.3 fL (36.4-46.3) RDW Coefficient of Variation 12.7 % (11.5-14.5) Immature Granulocyte % (Auto) 0.1 % Immature Granulocyte # (Auto) 0.01 K/uL (0.00-0.02) Anion Gap 5.0 mmol/L (3-11) Est Creatinine Clear Calc Drug Dose 115.4 ml/min Estimated GFR () 126.1 Estimated GFR (Non- 108.8 BUN/Creatinine Ratio 15.6 (10-20) Calcium Level 8.7 mg/dl (8.5-10.1) Total Bilirubin 0.4 mg/dl (0.2-1) Aspartate Amino Transf (AST/SGOT) 12 U/L (15-37) Alanine Aminotransferase (ALT/SGPT) 23 U/L (12-78) Alkaline Phosphatase 86 U/L (45-117) Total Protein 7.9 gm/dl (6.4-8.2) Albumin 3.9 gm/dl (3.4-5.0) Globulin 4.0 gm/dl (2.5-4.0) Albumin/Globulin Ratio 1.0 (0.9-2) Thyroid Stimulating Hormone (TSH) 0.810 uIu/ml (0.300-4.500) Salicylates Level < 1.7 mg/dl (2.8-20) Acetaminophen Level 2 ug/ml (10-30) Ethyl Alcohol mg/dL < 3.0 mg/dl (0-3) Urine Color YELLOW Urine Appearance TURBID (CLEAR) Urine pH 8.5 (4.5-7.5) Urine Specific [place] 1.038 (1.000-1.030) Urine Protein NEG (NEG) Urine Glucose (UA) NEG (NEG) Urine Ketones TRACE (NEG) Urine Occult Blood NEG (NEG) Urine Nitrite NEG (NEG) Urine Bilirubin NEG (NEG) Urine Urobilinogen NEG (NEG) Urine Leukocyte Esterase TRACE (NEG) Urine WBC (Auto) 1-5 /hpf (0-5) Urine RBC (Auto) 0-4 /hpf (0-4) Urine Hyaline Casts (Auto) 0 /lpf (0-5) Urine Epithelial Cells (Auto) >30 /lpf (0-5) Urine Bacteria (Auto) NEG (NEG) Urine Test NEG (NEG) Urine Opiates Screen NEG (NEG) Urine Methadone, Qualitative NEG (NEG) Urine Barbiturates NEG (NEG) Urine Phencyclidine (PCP) Level NEG (NEG) Ur Amphetamine/Methamphetamine NEG (NEG) MDMA (Ecstasy) Screen NEG (NEG) Urine Benzodiazepines Screen NEG (NEG) Urine Cocaine Metabolite NEG (NEG) Urine Marijuana (THC) NEG (NEG) Laboratory results as reviewed by me. ED Course 0021: The patient was evaluated in room A7. A complete history and physical exam was performed. 0221: I reevaluated the patient, who is resting comfortably and has no requests. 0641: The patient was accepted as an inpatient at [facility]. Awaiting transportation. Medical Decision Etiologies such as mood disorder, infection, hypoglycemia, electrolyte abnormalities, cardiac sources, intracerebral event, toxicologic, neurologic, as well as others were entertained. 22 yr old female arrives for evaluation of suicidal ideation and worsening hallucinations. Voluntary and wishing admission as she is worried she may harm herself. She does not feel safe going home as she thinks she may kill herself. Admits being off her Seroquel for the last week as she felt it was ineffective and she had run out of rx. She has no evidence nor reason to suspect active overdose. She is stable, medically clear. Signed 201. No issues throughout the night. She was accepted to [facility]. Medication Reconcilliation Current Medication List: was personally reviewed by me Blood Pressure Screening Patient's blood pressure: Normal blood pressure Blood pressure disposition: Did not require urgent referral Impression Primary Impression: Suicidal ideation Additional Impressions: Depression Hallucinations Scribe Attestation The scribe's documentation has been prepared under my direction and personally reviewed by me in its entirety. I confirm that the note above accurately reflects all work, treatment, procedures, and medical decision making performed by me. Departure Information Dispostion Still a Patient Referrals No Doctor, Assigned (PCP) Forms HOME CARE DOCUMENTATION FORM, IMPORTANT VISIT INFORMATION Patient Instructions My [facility] Problem Qualifiers
[2017-09-13 01:03] LABS: ALBUMIN 3.9 gm/dl (3.4-5.0); CALCIUM 8.7 mg/dl (8.5-10.1); CREATININE 0.77 mg/dl (0.60-1.20); POTASSIUM 3.9 mmol/L (3.5-5.1)
[2017-09-13 01:13] LABS: TOTAL PROTEIN 7.9 gm/dl (6.4-8.2)
[2017-09-13 03:37] VITALS: TEMP 36.7
[2017-09-13] MEDS ORDERED: ACETAMINOPHEN 500 MG TAB PO STA (06:38)
[2017-09-13] MEDS: BENZONATATE 100MG CAP PO ONE (06:56)
[2017-09-13 08:42] VITALS: BP 121/75; PULSE 118; O2SAT 100
== END 2017-09-13 08:43 ==
LOC: C.EDB 00:06 → C.EDA 08:43
DX: R45.851 Suicidal ideations (principal); F32.9 Major depressive disorder, single episode, unspecified; R44.3 Hallucinations, unspecified; F20.9 Schizophrenia, unspecified